=== PATIENT | female | born 1995 | race American Indian/Alaskan Native ===

== ENCOUNTER 2018-04-04 13:25 | Emergency (ER) | payer OTHER ==
[2018-04-04 13:36] VITALS: BP 115/73
[2018-04-04] MEDS ORDERED: MOTRIN PO ONE (14:04)
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
== END 2018-04-04 16:18 | disposition home or self-care (01) ==
LOC: ED 13:25
DX: S16.1XXA Strain of muscle, fascia and tendon at neck level, initial encounter (principal); S09.90XA Unspecified injury of head, initial encounter; G44.319 Acute post-traumatic headache, not intractable; F17.200 Nicotine dependence, unspecified, uncomplicated; V89.2XXA Person injured in unspecified motor-vehicle accident, traffic, initial encounter; X58.XXXA Exposure to other specified factors, initial encounter; Y93.89 Activity, other specified; Y99.8 Other external cause status; Y92.410 Unspecified street and highway as the place of occurrence of the external cause
CPT/HCPCS: 70450; 72125